=== PATIENT | male | born 1970 | race Caucasian/White ===

== ENCOUNTER 2018-03-18 12:17 | Emergency (ER) | payer SELFPAY ==
[2018-03-18 12:18] VITALS: BMI 26.4
[2018-03-18 12:47] VITALS: BP 143/95; PULSE 86; RESP 18; TEMP 98.1; O2SAT 99
--- NOTE | 2018-03-18 13:07 | ED PDOC ---
Arrival/HPI - General Chief Complaint: Upper Extremity Problem/Injury - History of Present Illness Narrative History of Present Illness (Text): 47 y/o M w/ no significant PMH right hand dominant presenting to the Emergency Room for thumb pain. The patient states he noted progressive swelling of a lesion on his R thumb that progressively increased in size over the past 1 month. The patient describes the thumb pain as tender to palpation with intermittent tingling within the digits. He denies any history of trauma, fractures or nerve injuries to the hand. Of note, the patient reports having the same swelling on his thumb a month prior and had it drained 1 month ago at [facility] her ED facility. He denies chest pain, shortness of breath, arm pain, jaw pain, back pain, motor weakness, parasthesias, syncopal epsiodes, bug bites or recent travel. Time/Duration: > month Symptom Onset: Gradual Symptom Course: Worsening Quality: Aching Activities at Onset: Rest Context: Home Past Medical History - Provider Review Nursing Documentation Reviewed: Yes - Travel History Have you recently traveled outside [place] w/in the past 3 mons?: No - Tetanus Immunization Tetanus Immunization: Unknown - Past Medical History Past Medical History: No Previous - Cardiac Hx Cardiac Disorders: No Hx Angina: No Hx Atrial Fibrillation: No Hx Cardiac Arrhythmia: No Hx Circulatory Problems: No Hx Congestive Heart Failure: No Hx MD: No Hx Heart Murmur: No Hx Heart Transplant: No Hx Hypertension: No Hx Hypotension: No Hx Internal Defibrillator: No - Pulmonary Hx Respiratory Disorders: No Hx Asthma: No Hx Bronchitis: No Hx Chronic Obstructive Pulmonary Disease (COPD): No - Neurological Hx Neurological Disorder: No - HEENT Hx HEENT Disorder: No - Renal Hx Renal Disorder: No - Endocrine/Metabolic Hx Endocrine Disorders: No Hx Diabetes Mellitus Type 2: Yes - Hematological/Oncological Hx Blood Disorders: No - Integumentary Hx Dermatological Disorder: No - Musculoskeletal/Rheumatological Hx Musculoskeletal Disorders: No Hx Falls: No - Gastrointestinal Hx Gastrointestinal Disorders: No - Genitourinary/Gynecological Hx Genitourinary Disorders: No - Psychiatric Hx Depression: No Hx Emotional Abuse: No Hx Physical Abuse: No Hx Substance Use: No - Past Surgical History Past Surgical History: No Previous - Anesthesia Hx Anesthesia: Yes Hx Anesthesia Reactions: No Hx Malignant Hyperthermia: No - Suicidal Assessment Feels Threatened In Home Enviroment: No Family/Social History - Physician Review Nursing Documentation Reviewed: Yes Family/Social History: Unknown Family HX Smoking Status: Former Smoker Hx Alcohol Use: No Hx Substance Use: No Hx Substance Use Treatment: No Allergies/Home Meds Allergies/Adverse Reactions: Allergies No Known Allergies Allergy (Verified 01/03/14 12:54) Review of Systems - Physician Review All systems were reviewed & negative as marked: Yes - Review of Systems Skin: Skin Lesions (skin lesion noted on right thumb) Physical Exam Vital Signs Reviewed: Yes Vital Signs Temp Pulse Resp BP Pulse Ox 03/18/18 12:46 98.1 F 86 18 143/95 H 99 Temperature: Afebrile Blood Pressure: Hypertensive Pulse: Regular Respiratory Rate: Normal Appearance: Positive for: Well-Appearing, Non-Toxic, Comfortable Pain Distress: None Mental Status: Positive for: Alert and Oriented X 3 - Systems Exam Head: Present: Atraumatic, Normocephalic Pupils: Present: PERRL Extroacular Muscles: Present: EOMI Conjunctiva: Present: Normal Mouth: Present: Moist Mucous Membranes Neck: Present: Normal Range of Motion Respiratory/Chest: Present: Clear to Auscultation, Good Air Exchange. No: Respiratory Distress, Accessory Muscle Use Cardiovascular: Present: Regular Rate and Rhythm, Normal S1, S2. No: Murmurs Abdomen: No: Tenderness, Distention, Peritoneal Signs Back: Present: Normal Inspection Upper Extremity: Present: NORMAL PULSES (Adequate radial pulses.), Tenderness (Tender to palpation), Neurovascularly Intact, Other (Large fluctuant mass noted near the distal phalanx of the right thumb. Able to make the O.K. sign. ). No: Cyanosis, Edema Lower Extremity: Present: Normal Inspection. No: Edema Neurological: Present: GCS=15, CN II-XII Intact, Speech Normal Skin: Present: Warm, Dry, Normal Color. No: Rashes Psychiatric: Present: Alert, Oriented x 3, Normal Insight, Normal Concentration Medical Decision Making ED Course and Treatment: 03/18/18 14:04 Procedure: Incision & Drainage Performed by the emergency provider Indication: Abscess Location: Distal phalanx of the right thumb Preparation: The area was prepped and draped in the usual sterile fashion and was cleansed with Betaldyne and NS. Local infiltration of Lidocaine 1% was used for anesthesia. Procedure: The most fluctuant portion of the abscess was incised with a #11 scalpel. Approximately 5 mL of purulent, thick white/yellow discharge was obtained. The abscess was packed. A dressing was applied by the tech. Post-Procedure: On exam the abscess is notably less fluctuant. The patient tolerated the procedure well, and there were no complications. Cultured: YES Disposition/Present on Arrival - Present on Arrival Any Indicators Present on Arrival: No History of DVT/PE: No History of Uncontrolled Diabetes: No Urinary Catheter: No History of Decub. Ulcer: No History Surgical Site Infection Following: None - Disposition Have Diagnosis and Disposition been Completed?: Yes Diagnosis: Edmundo of esther Disposition: HOME/ ROUTINE Disposition Time: 13:59 Patient Plan: Discharge Condition: IMPROVED Discharge Instructions (ExitCare): Cellulitis (Skin Infection), Adult (DC), Paronychia (DC) Print Language: AZERI Additional Instructions: All medical record entries made by the Scribe were at my direction and personally dictated by me. I have reviewed the chart and agree that the record accurately reflects my personal performance of the history, physical exam, medical decision making, and the department course for this patient. I have also personally directed, reviewed, and agree with the discharge instructions and disposition. Please return to the ED in 3-5 day for reevaluation of your wound Prescriptions: Clindamycin [Cleocin] 300 mg PO BID 10 Days #20 cap Referrals: Sherrie Fowler MD [Medical Doctor] - Follow up with primary [facility] [place] [Outside] - Follow up with primary Forms: [facility] (Ivorian)
[2018-03-18] MEDS ORDERED: Lidocaine 1% Inj (20ml) IJ STA (13:38)
== END 2018-03-18 14:15 | disposition home or self-care (01) ==
LOC: ED 12:17
DX: L03.011 Cellulitis of right finger (principal)
CPT/HCPCS: 10060; 96372; 99282; J1885

== ENCOUNTER 2018-04-03 15:18 | Emergency (ER) | payer SELFPAY ==
[2018-04-03 15:22] VITALS: BMI 27.6
[2018-04-03 15:40] VITALS: BP 146/97; PULSE 85; RESP 16; O2SAT 100
--- NOTE | 2018-04-03 17:25 | ED PDOC ---
Arrival/HPI - General Chief Complaint: Abnormal Skin Integrity Time Seen by Provider: 04/03/18 15:32 Historian: Patient - History of Present Illness Narrative History of Present Illness (Text): 04/03/18 17:26 47 m presents to the Emergency department for removal of packing. patient was seen in this Emergency department on 03.18.2018, had I&D performed with documented pus drainage and packing was placed. patient took antibiotics. 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 patient denies any fever, pain or other concerns. Time/Duration: Other (pt presents for removal of packing) Symptom Onset: Other Symptom Course: Resolved Activities at Onset: Light Past Medical History - Provider Review Nursing Documentation Reviewed: Yes - Infectious Disease Hx of Infectious Diseases: None - Tetanus Immunization Tetanus Immunization: Unknown - Past Medical History Past Medical History: No Previous - Cardiac Hx Cardiac Disorders: No - Pulmonary Hx Respiratory Disorders: No - Neurological Hx Neurological Disorder: No - HEENT Hx HEENT Disorder: No - Renal Hx Renal Disorder: No - Endocrine/Metabolic Hx Endocrine Disorders: Yes Hx Diabetes Mellitus Type 2: Yes - Hematological/Oncological Hx Blood Disorders: No - Integumentary Hx Dermatological Disorder: No - Musculoskeletal/Rheumatological Hx Musculoskeletal Disorders: No - Gastrointestinal Hx Gastrointestinal Disorders: No - Genitourinary/Gynecological Hx Genitourinary Disorders: No - Psychiatric Hx Psychophysiologic Disorder: No Hx Substance Use: No - Past Surgical History Past Surgical History: No Previous - Anesthesia Hx Anesthesia: Yes Hx Anesthesia Reactions: No Hx Malignant Hyperthermia: No - Suicidal Assessment Feels Threatened In Home Enviroment: No Family/Social History - Physician Review Nursing Documentation Reviewed: Yes Family/Social History: No Known Family HX Smoking Status: Former Smoker Hx Alcohol Use: No Hx Substance Use: No Hx Substance Use Treatment: No Allergies/Home Meds Allergies/Adverse Reactions: Allergies No Known Allergies Allergy (Verified 01/03/14 12:54) Home Medications: Home Meds Medication Instructions Recorded Confirmed No Known Home Med 04/03/18 04/03/18 Review of Systems - Physician Review All systems were reviewed & negative as marked: Yes - Review of Systems Constitutional: Normal. absent: Fevers Musculoskeletal: Normal, Other (pt presents to remove packing from I&D that was performed on 03.18.18 ) Physical Exam - Physical Exam Narrative Physical Exam (Text): 04/03/18 17:30 Gen: VS reviewed, alert, well developed, well nourished, nontoxic, mild distress Eye: EOMI, PERRL Neck: no JVD, supple, no adenopathy Ext: no edema, there is a small open wound without any active bleeding, no purulent drainage, no surrounding cellulitic skin changes. Skin: good color, no rash, no cyanosis Psych: appropriate normal affect Neuro: nonfocal grossly Vital Signs Reviewed: Yes Vital Signs Temp Pulse Resp BP Pulse Ox 04/03/18 15:37 97.4 F L 85 16 146/97 H 100 04/03/18 15:23 97.8 F 86 18 167/106 H 98 Temperature: Afebrile Blood Pressure: Hypertensive Pulse: Regular Respiratory Rate: Normal Appearance: Positive for: Well-Appearing, Non-Toxic, Comfortable Pain Distress: Mild Mental Status: Positive for: Alert and Oriented X 3 Medical Decision Making ED Course and Treatment: 04/03/18 17:26 Impression: 47 m presents to the Emergency department for removal of packing. Prior Visits: Notes and results from previous visits were reviewed. Patient was last seen in the emergency department on 03/18/18 for thumb pain. Pt was discharged to home in improved condition and prescribed Clindamycin [Cleocin] 300mg PO BID 10 days #20 cap. Progress Notes: 04/03/18 17:23 finger was soaked in sterile water. the superficial packing was removed. the underlying tissue was noted to be clean, free of debris, no evidence of cellulitis or draining abcess. simple bandage and abx ointment. stable for dc. - Scribe Statement The provider has reviewed the documentation as recorded by the Ivonibasad Kate All medical record entries made by the Magdalene were at my direction and personally dictated by me. I have reviewed the chart and agree that the record accurately reflects my personal performance of the history, physical exam, medical decision making, and the department course for this patient. I have also personally directed, reviewed, and agree with the discharge instructions and disposition. Disposition/Present on Arrival - Present on Arrival Any Indicators Present on Arrival: No History of DVT/PE: No History of Uncontrolled Diabetes: No Urinary Catheter: No History of Decub. Ulcer: No History Surgical Site Infection Following: None - Disposition Have Diagnosis and Disposition been Completed?: Yes Diagnosis: Finger pulp abscess Disposition: HOME/ ROUTINE Disposition Time: 17:25 Patient Plan: Discharge Condition: STABLE Discharge Instructions (ExitCare): Abscess Incision and Drainage Additional Instructions: Return for any evidence of infection especially worsening pain,increased swelling, redness around wound or red streaks extending up hand/arm. PABLO HERNADEZ, thank you for letting us take care of you today. Your provider was Dr. Mateus Menendez and you were treated for finger abcess. The emergency medical care you received today was directed at your acute symptoms. If you were prescribed any medication, please fill it and take as directed. It may take several days for your symptoms to resolve. Return to the Emergency Department if your symptoms worsen, do not improve, or if you have any other problems. Please contact your doctor or call one of the physicians/clinics you have been referred to that are listed on the Patient Visit Information form that is included in your discharge packet. Bring any paperwork you were given at discharge with you along with any medications you are taking to your follow up visit. Our treatment cannot replace ongoing medical care by a primary care provider outside of the emergency department. Thank you for allowing the [facility] team to be part of your care today. If you had an X-Ray or CT scan: A Radiologist will review the ED reading if any change in treatment is needed we will contact you. If you had a blood, urine, or wound culture: It will take several days for the results, if any change in treatment is needed we will contact you. If you had an STI test: It will take 48 hours for the results. Please call after 1 week if you have not heard back. Referrals: PCP,NO [Primary Care Provider] - Follow up with primary Forms: [employer] ([place]an)
[2018-04-03 17:35] VITALS: TEMP 98
== END 2018-04-03 17:34 | disposition home or self-care (01) ==
LOC: ED 15:18
DX: L02.511 Cutaneous abscess of right hand (principal)